=== PATIENT | male | born 1940 | race Two or more races ===

== ENCOUNTER 2022-12-10 07:20 | Day surgery (SDC) | payer OTHER | END 2022-12-10 12:25 | disposition home or self-care (01) | LOC: AMB-ENDOS 07:20 → CIR.AMB 13:00 | PROVIDERS: ATTEND Surgery | DX: D12.0 Benign neoplasm of cecum (principal); K62.5 Hemorrhage of anus and rectum; Z20.822 Contact with and (suspected) exposure to COVID-19; D12.2 Benign neoplasm of ascending colon; R19.5 Other fecal abnormalities ==